=== PATIENT | female | born 1955 | race Caucasian/White ===

== ENCOUNTER 2016-12-18 17:58 | Emergency (ER) | payer OTHER, MEDICAID ==
[~2016-12-18] VITALS: Ht 157.5 cm; Wt 71.7 kg
[2016-12-18 19:02] LABS: Basophils # (auto) 0.1 uL; Basophils % (auto) 1.1 % (0.0-2.0); Eosinophils # (auto) 0.1 uL; Eosinophils % (auto) 0.6 % (0.0-7.0); Hematocrit 37.5 % (36.0-46.0); Hemoglobin 12.4 g/dL (12.2-16.2); Mean Corpuscular Hgb Conc. 33.1 g/dL (32.0-36.0); Mean Corpuscular Volume 87.7 fL (80.0-100.0); Monocytes # (auto) 0.8 uL; Monocytes % (auto) 6.2 % (0.0-12.0); Neutrophils # (auto) 11.7 uL; Neutrophils % (auto) 85.1 % (37.0-80.0); Platelet Count (auto) 395 10^3/uL (140-450); Red Cell Distribution Width 13.4 % (11.6-16.0); White Blood Cell 13.7 10^3/uL (4.4-10.8)
[2016-12-18 19:30] LABS: Albumin 2.8 g/dL (3.4-5.0); Anion Gap 10 (5-15); Aspartate Aminotransferase 27 U/L (15-37); BUN/Creatinine Ratio 14.5; Blood Urea Nitrogen 8 mg/dL (7-18); Calcium 8.8 mg/dL (8.5-10.1); Carbon Dioxide 24 mmol/L (21-32); Chloride 102 mmol/L (98-107); GFR African American 145 mL/min; GFR Non-African American 119 mL/min; Glucose 179 mg/dL (74-106); Sodium 136 mmol/L (136-145)
[2016-12-18 19:35] LABS: Alkaline Phosphatase 174 U/L (45-117); Bilirubin, Total 0.6 mg/dL (0.2-1.0); Total Protein 6.8 g/dL (6.4-8.2)
[2016-12-18] MEDS ORDERED: SODIUM CHLORIDE 0.9% 1,000 ML IV ONE ×2 (19:49→22:00)
[2016-12-18] MEDS ORDERED: LEVOFLOXACIN 500MG 100 ML IV ONE (20:00)
[2016-12-18] MEDS ORDERED: NALBUPHINE HCL 10 MG/1ml INJECTION IV ONE (22:00)
[2016-12-18] MEDS ORDERED: ALBUTEROL SULF 2.5 MG/0.5ML(0.5%) NEB SOLN NEB ONE (22:00)
[2016-12-18] MEDS ORDERED: IPRATROPIUM BROM 0.5 MG/2.5ML INH SOL NEB ONE (22:00)
[2016-12-18] MEDS ORDERED: ONDANSETRON HCL 4 MG/2 ML VIAL IV ONE (22:00)
[2016-12-18 22:04] LABS: Urine Bilirubin Negative (Negative); Urine Blood Negative /uL (Negative); Urine Color Yellow (Yellow); Urine Glucose Normal (Normal); Urine Nitrite Negative (Negative); Urine RBC <1 /hpf (0 - 4); Urine Squamous Epithelial Cell FEW /hpf (<5); Urine Urobilinogen Normal (Negative); Urine pH 6.5 (5.0-8.0)
[2016-12-18 22:14] LABS: Urine Ketone 1+ (Negative)
[2016-12-18 22:25] VITALS: BP 128/63
== END 2016-12-18 23:36 | disposition left against medical advice (07) ==
LOC: EDBD 17:58 → ER 18:32
DX: J18.9 Pneumonia, unspecified organism (principal); E11.9 Type 2 diabetes mellitus without complications; I10 Essential (primary) hypertension
CPT/HCPCS: 36415; 71010; 80053; 81001; 83605; 84484; 85025; 87040; 94640; 94761; 96361; 96365; 96366; 96375; 99285; J1956; J2300; J2405; J7030

== ENCOUNTER 2018-09-12 04:44 | Emergency (ER) | payer OTHER, MEDICAID ==
[~2018-09-12] VITALS: Ht 165.1 cm; Wt 68.0 kg
[~2018-09-12 04:44] MED LIST: GABA300C10 PO; METO-159 PO; POM PO
[2018-09-12] MEDS ORDERED: KETOROLAC TROMETH 30 MG/ML 1ML VIAL IV ONE (06:00)
[2018-09-12] MEDS ORDERED: ONDANSETRON HCL 4 MG/2 ML VIAL IV ONE (06:00)
== END 2018-09-12 06:23 | disposition left against medical advice (07) ==
LOC: EDBD 04:44 → ER 04:50
DX: R11.2 Nausea with vomiting, unspecified (principal); Z53.21 Procedure and treatment not carried out due to patient leaving prior to being seen by health care provider
CPT/HCPCS: 93005; 96374; 96375; 99281; J1885; J2405

== ENCOUNTER 2018-11-09 17:43 | Inpatient (IN) | payer OTHER, MEDICAID ==
[~2018-11-09] VITALS: Ht 165.1 cm; Wt 75.7 kg
[2018-11-09] MEDS ORDERED: cefTRIAXone 1GM/50ML D5W 50 ML IV ONE (18:00)
[2018-11-09] MEDS ORDERED: AZITHROMYCIN 500MG/ 250ML 250 ML IV ONE (19:00)
[2018-11-09 19:41] LABS: Eosinophils # (auto) 0.2 uL; Hematocrit 31.3 % (36.0-46.0); Monocytes # (auto) 0.3 uL; Neutrophils # (auto) 9.9 uL; Nucleated Red Blood Cells % 0.1 %; Red Blood Cells 3.68 10^6/uL (4.0-5.20); White Blood Cell 11.1 10^3/uL (4.4-10.8)
[2018-11-09 19:43] LABS: Basophils # (auto) 0 uL; Basophils % (auto) 0.3 % (0.0-2.0); Eosinophils % (auto) 1.8 % (0.0-7.0); Hemoglobin 10.2 g/dL (12.2-16.2); Lymphocytes # (auto) 0.6 uL; Lymphocytes % (auto) 5.6 % (10.0-50.0); Mean Corpuscular Hemoglobin 27.7 pg (28.0-32.0); Mean Corpuscular Hgb Conc. 32.6 g/dL (32.0-36.0); Monocytes % (auto) 2.5 % (0.0-12.0); Neutrophils % (auto) 89.8 % (37.0-80.0); Platelet Count (auto) 543 10^3/uL (140-450); Red Cell Distribution Width 15.4 % (11.8-14.3)
[2018-11-09 19:46] LABS: INR 1.05 (0.9-1.15); Partial Thromboplastin Time 36.1 sec (23.78-33.04); Prothrombin Time 11.2 sec (9.27-12.13)
[2018-11-09 19:55] LABS: Albumin 2.4 g/dL (3.4-5.0); BUN/Creatinine Ratio 14.1; Calcium 8.7 mg/dL (8.5-10.1); Magnesium 2.2 mg/dL (1.6-2.6); Potassium 3.6 mmol/L (3.5-5.1)
[2018-11-09 20:00] LABS: Bilirubin, Total 0.2 mg/dL (0.2-1.0); Total Protein 6.3 g/dL (6.4-8.2)
[2018-11-09] MEDS ORDERED: HYDROcodone-ACET 10/325MG TAB PO ONE (21:15)
[2018-11-09] MEDS ORDERED: GABAPENTIN 300 MG CAP PO ONE (23:45)
[2018-11-10] VITALS (8 sets, daily range): BP systolic 102–128; BP diastolic 51–63
[2018-11-10] MEDS ORDERED: ONDANSETRON HCL 4 MG/2 ML VIAL IV ONE (00:45)
[2018-11-10] MEDS ORDERED: FUROSEMIDE 20 MG/2 ML VIAL IV ONE (00:45)
[2018-11-10] MEDS ORDERED: MORPHINE SULFATE 4 MG/ML SYR/VIAL IV ONE (00:45)
[2018-11-10] MEDS ORDERED: ONDANSETRON HCL 4 MG/2 ML VIAL IV PRN (01:45)
[2018-11-10] MEDS ORDERED: ACETAMINOPHEN 500 MG TAB PO PRN (01:45)
[2018-11-10] MEDS ORDERED: NITROGLYCERIN 0.4 MG SL TAB SL PRN (01:45)
[2018-11-10] MEDS ORDERED: LORazepam 2MG/ML-1ML VIAL IV ONE (01:45)
[2018-11-10] MEDS ORDERED: ALBUTEROL SULF 2.5 MG/0.5ML(0.5%) NEB SOLN NEB PRN (02:00)
[2018-11-10] MEDS ORDERED: DEXTROSE (50%) 50ML SYRG IV PRN (03:15)
[2018-11-10] MEDS ORDERED: cloNIDine HCL 0.1 MG TAB PO PRN (03:15)
--- NOTE | 2018-11-10 05:15 | NUR ---
HOSPITALIST RETURNED CALL NEW ORDER FOR ABG RECEIVED
--- NOTE | 2018-11-10 05:39 | NUR ---
TELE ADMIT FROM ER JAYYROJELIO ADMITTED TO TELE. NO SBAR RECEIVED. PATIENT ORIENTED TO LAVELL CARRILLO RN, ROOM 223 A AND POLICIES REGARDING PATIENT CARE AND VISITING HOURS. WEIGHED AT BEDSCALE, VITALS SIGNS AND ASSESSMENT DONE. PATIENTS O2 SATURATION 85 % ON 10L. PATIENT COMPLAINING OF SOB. RESPIRATORY PAGED FOR BREATHING TREATMENT. WILL CONTINUE TO MONITOR. Addendum: 11/10/18 at 0543 by LAVELL PATHAK RN RN WRONG TIME. RIGHT TIME 0400 Addendum: 11/10/18 at 0549 by LAVELL PATHAK RN RN PATIENT IS ALSO VERY FATIGUED AND LETHARGIC WITH SOB AT REST. RESPIRATIONS 26 BPM, HR 89, BP 106/56
--- NOTE | 2018-11-10 05:43 | NUR ---
MED REC PATIENT IS UNABLE TO STATE MEDICATIONS AT THIS TIME. SHE IS VERY SLEEPY AND FATIGUED WITH SOB WHILE TALKING.
[2018-11-10] MEDS ORDERED: FUROSEMIDE 20 MG/2 ML VIAL IV SCH ×2 (06:00→18:00)
[2018-11-10] MEDS ORDERED: INFLUENZA QUAD 2018-2019 0.5 ML SYRG IM ONE (06:00)
[2018-11-10] MEDS ORDERED: PNEUMOCOCCAL VACC POLYS 25 MCG/0.5 ML VIAL IM ONE (06:00)
[2018-11-10] MEDS: GABAPENTIN 300 MG CAP PO SCH ×3 (06:27→22:39)
[2018-11-10] MEDS: IPRATROPIUM BROM 0.5 MG/2.5ML INH SOL NEB SCH ×3 (06:35→20:04)
[2018-11-10] MEDS: ALBUTEROL SULF 2.5 MG/0.5ML(0.5%) NEB SOLN NEB SCH ×3 (06:35→20:04)
--- NOTE | 2018-11-10 06:43 | NUR ---
INCREASED 02 TO 15LPM NRB, DUE TO LOW SAT OF 88% ON SIMPLE MASK. SPO2 INCREASED TO 94%. Addendum: 11/10/18 at 0649 by Ita Pittman RT Amended: Links added.
[2018-11-10] MEDS: InsuLIN REG 1unit/0.01ml Soln (100units/ml) SC SCH ×4 (07:00→22:00)
--- NOTE | 2018-11-10 07:26 | NUR ---
CLOSING SHIFT NOTE TRANSFERRED CARE OF PATIENT TO DAY SHIFT RN SHAYLEE. PATIENT IS ASLEEP IN BED. HOB IS ELEVATED AND O2 ON AT 12L. BED IS IN LOWEST POSITION, LOCKED, NONSKID SOCKS ON, AND CALL LIGHT IS IN REACH.
[2018-11-10] MEDS: ACCU-CHEK COMFORT CURVE STRIP VI SCH ×4 (07:28→22:00)
[2018-11-10 08:48] LABS: Hemoglobin 10.1 g/dL (12.2-16.2); Platelet Count (auto) 531 10^3/uL (140-450); Red Blood Cells 3.62 10^6/uL (4.0-5.20)
[2018-11-10 08:50] LABS: Hematocrit 30.5 % (36.0-46.0); Mean Corpuscular Hgb Conc. 33.2 g/dL (32.0-36.0); Mean Corpuscular Volume 84.3 fL (80.0-100.0); Red Cell Distribution Width 15.4 % (11.8-14.3); White Blood Cell 10.9 10^3/uL (4.4-10.8)
[2018-11-10] MEDS: ASPirin-EC 81 mg tab PO SCH (09:02)
[2018-11-10] MEDS: METOPROLOL TARTRATE 50 MG TAB PO SCH ×2 (09:02→22:34)
[2018-11-10 09:04] LABS: BUN/Creatinine Ratio 14.9; Calcium 8.9 mg/dL (8.5-10.1); Potassium 3.6 mmol/L (3.5-5.1)
[2018-11-10 09:05] LABS: Band Neutrophils % (manual) 0; Basophils % (manual) 0 (0.0-2.0); Blast Cells 0; Eosinophils % (manual) 0 (0-7); Metamyelocytes % 0; Myelocytes % 0; Promyelocytes % 0; Reactive Lymphocytes 0
[2018-11-10] MEDS: HYDROcodone-ACET 5/325MG TAB PO PRN ×3 (09:40→20:01)
[2018-11-10] MEDS ORDERED: FAMOTIDINE 20 MG TAB PO SCH (10:00)
[2018-11-10 11:03] LABS: Urine Bacteria NONE SEEN /hpf (None Seen); Urine Blood Negative /uL (Negative); Urine Hyaline Cast FEW /lpf (0 - 2); Urine Specific Gravity 1.009 (1.001-1.035); Urine WBC 2 /hpf (0 - 5)
--- NOTE | 2018-11-10 11:42 | NUR ---
Dr. Mulligan at bedside discussed with patient, received new orders noted and carried out.
[2018-11-10] MEDS ORDERED: FUROSEMIDE 40 MG/4 ML VIAL IV ONE (11:45)
[2018-11-10 11:52] LABS: Lymphocytes % (manual) 6 (10.0-50.0); Monocytes % (manual) 4 (0-12)
--- NOTE | 2018-11-10 12:15 | NUR ---
T 100, cooling measure taken.
--- NOTE | 2018-11-10 13:00 | NUR ---
T 98.5. Will continue to monitor.
[2018-11-10] MEDS ORDERED: IOHEXOL 350 MG/ML 100ML IJ ONE (13:10)
--- NOTE | 2018-11-10 13:30 | NUR ---
IV insertion IV access obtained, via clean sterile technique by inserting 20 gauge catheter at after attempt(s). IV secured properly. No trauma to site. Patient tolerated well.
[2018-11-10] MEDS: MORPHINE SULFATE 4 MG/ML SYR/VIAL IV PRN ×2 (14:19→23:08)
--- NOTE | 2018-11-10 15:16 | NUR ---
Dr. Mulligan made aware of RR 30-35 BP 102/57 HR 92 o2 95% of oxygen mask with bag at 12 LMP, new order noted and carried out.
[2018-11-10] MEDS: LORazepam 0.5 MG TAB PO PRN (17:11)
--- NOTE | 2018-11-10 17:21 | NUR ---
T 100.2, cooling measure taken.
--- NOTE | 2018-11-10 18:13 | NUR ---
T 99.9
--- NOTE | 2018-11-10 19:35 | NUR ---
RT REPORTS PATIENT ON NC AT 9L WITH PATIENT O2 SATURATION 83% PATIENT IS ALERT AND ORIENTED X4, BP 109/57, P 118, R28, T99.9. LUNGS ARE DIMINISHED WITH CRACKLES. RESPIRATORY MEGAN CURRENTLY PLACED HER ON 12L FACE MASK NON-BREATHER WITH AN O2 SATURATION OF 96%. COPD IS NOTED. ABG YESTERDAY SHOWS NON CO2 RETAINER. PH7.333, PACO2 39.5, BICARB 20.5, AND PAO2 63.0. WILL ADJUST OXYGEN NEEDED ACCORDING PATIENT NORMAL BASELINE, AND CHANGE TO OXYMIZER NEEDED.
--- NOTE | 2018-11-10 19:43 | NUR ---
Respiratory note: ENTERED ROOM TO ADMINISTER BREATHING TX. PT FOUND ON 9L NASAL CANNULA, SATS 81-85%. RECEIVED IN REPORT THAT PT WAS ON NRB @12lpm, NRB CURRENTLY OFF AND AT BEDSIDE. PT STATES THEY TOOK HER OFF MASK TO EAT DINNER. TX GIVEN, TOLERATED WELL, SATS UP TO 93%. PT PLACED BACK ON NRB POST TX. WILL PLACE PT ON CONT. PULSE OX MONITOR. SPOKE WITH RN AND CHARGE NURSE REGARDING PTS O2.
--- NOTE | 2018-11-10 19:56 | NUR ---
RT CHANGED PATIENT TO OXYMIZER AT 12L WITH A O2 SATURATION OF 93%. WILL CONTINUE TO MONITOR
--- NOTE | 2018-11-10 19:58 | NUR ---
Respiratory note: PT PLACED ON CONT. PULSE OX MONITOR. SWITCHED TO 12L OXYMIZER, SATS MAINTAINING AT 90-95%. HR 96, RR 26. PT COMPLAINING OF PAIN. RN REMAINS AT BEDSIDE.
--- NOTE | 2018-11-10 22:30 | NUR ---
Respiratory note: WALKING PAST PTS ROOM, PULSE OX ALARMING. ENTERED ROOM, PTS SATS 59%. PT ON OXYMIZER, OXYMIZER IN PTS MOUTH. WOKE UP PT, SATS NOT COMING UP, SWITCHED TO NRB AT 12LPM. SATS NOW 93-98%. SPOKE WITH CHARGE NURSE, STATES THEY WILL MOVE PT CLOSER TO NURSES STATION.
[2018-11-10] MEDS: AZITHROMYCIN 500MG/ 250ML 250 ML IV SCH (22:33)
[2018-11-10] MEDS: FAMOTIDINE 20 MG TAB PO SCH (22:35)
[2018-11-10] MEDS: ATORVASTATIN 20 MG TAB PO SCH (22:35)
[2018-11-11] MEDS: ALBUTEROL SULF 2.5 MG/0.5ML(0.5%) NEB SOLN NEB SCH ×4 (00:24→19:53)
[2018-11-11] MEDS: IPRATROPIUM BROM 0.5 MG/2.5ML INH SOL NEB SCH ×4 (00:24→19:53)
[2018-11-11] MEDS: cefTRIAXone 1GM/50ML D5W 50 ML IV SCH ×2 (01:11→20:36)
[2018-11-11] MEDS: HYDROcodone-ACET 5/325MG TAB PO PRN ×4 (02:33→17:59)
[2018-11-11 04:30] VITALS: BP 126/60
--- NOTE | 2018-11-11 04:53 | NUR ---
OPENING SHIFT NOTE ASSUMED CARE OF PATIENT FROM DAY SHIFT SABRINA JUNE. PATIENT IS RESTING IN BED. RT IS AT BEDSIDE ADJUSTING O2 ADMINISTRATION. RESPIRATIONS ARE SHALLOW WITH [place] AT 26BPM. PATIENT IS ALERT AND ORIENTED X4 WITH BP IN NORMAL LIMITS. INSTRUCTED PATIENT ON POC, PATIENT VERBALIZED UNDERSTANDING. BED IS IN LOWEST POSITION WITH SIDE RAILS RAISED X2, BED WHEELS LOCKED, AND CALL LIGHT WITHIN REACH. WILL CONTINUE TO MONITOR.
[2018-11-11] MEDS: MORPHINE SULFATE 4 MG/ML SYR/VIAL IV PRN ×4 (05:18→21:19)
[2018-11-11] MEDS: GABAPENTIN 300 MG CAP PO SCH ×3 (05:24→21:18)
[2018-11-11] MEDS: InsuLIN REG 1unit/0.01ml Soln (100units/ml) SC SCH ×4 (06:15→21:20)
[2018-11-11 06:57] LABS: Mean Corpuscular Volume 84.8 fL (80.0-100.0); Red Cell Distribution Width 15.1 % (11.8-14.3)
[2018-11-11 06:59] LABS: Hematocrit 29.6 % (36.0-46.0); Hemoglobin 9.7 g/dL (12.2-16.2); Mean Corpuscular Hemoglobin 27.7 pg (28.0-32.0); Mean Corpuscular Hgb Conc. 32.7 g/dL (32.0-36.0); Platelet Count (auto) 530 10^3/uL (140-450); Red Blood Cells 3.49 10^6/uL (4.0-5.20); White Blood Cell 9.2 10^3/uL (4.4-10.8)
[2018-11-11] MEDS: ACCU-CHEK COMFORT CURVE STRIP VI SCH ×4 (07:00→21:20)
--- NOTE | 2018-11-11 07:01 | NUR ---
[facility] HOSPITALIST Addendum: 11/11/18 at 0809 by LAVELL PATHAK RN RN WRONG PATIENT
[2018-11-11 07:02] LABS: Basophils # (auto) 0 uL; Basophils % (auto) 0.3 % (0.0-2.0); Eosinophils # (auto) 0.1 uL; Lymphocytes # (auto) 0.5 uL; Monocytes # (auto) 0.2 uL; Monocytes % (auto) 2.5 % (0.0-12.0); Neutrophils # (auto) 8.2 uL; Neutrophils % (auto) 90.2 % (37.0-80.0); Nucleated Red Blood Cells % 0.1 %
--- NOTE | 2018-11-11 07:03 | NUR ---
HOSPITALIST RETURNED CALL NEW ORDERS RECEIVED TO PLACE MIDLINE CONSULT Addendum: 11/11/18 at 0808 by LAVELL PATHAK RN RN WRONG PATIENT.
[2018-11-11 07:15] LABS: BUN/Creatinine Ratio 15.5; Calcium 8.8 mg/dL (8.5-10.1); Potassium 3.4 mmol/L (3.5-5.1)
--- NOTE | 2018-11-11 07:55 | NUR ---
Paged respiratory therapist, patient saturation 100% on 15 liters non rebreather Spoke with Rachael. Informed that patient saturation is 100% on 15 liters non-rebreather. Per respiratory therapist, patient needs 15 liters oxygen based on ABG. Do not turn it down, respiratory will manage. Will continue to monitor.
--- NOTE | 2018-11-11 08:10 | NUR ---
CLOSING SHIFT NOTE TRANSFERRED CARE OF PATIENT TO DAY SHIFT RN EDD. PATIENT IS AWAKE RESTING IN BED. SHE IS ALERT AND ORIENTED X4 AT THIS TIME. NO S/S OF DISTRESS OR PAIN. PATIENT ON 15L FACE MASK NONREBREATHER BED IS IN LOWEST POSITION, LOCKED, NONSKID SOCKS ON, AND CALL LIGHT IS IN REACH.
[2018-11-11 09:00] VITALS: BP 124/58
[2018-11-11] MEDS: ASPirin-EC 81 mg tab PO SCH (10:00)
--- NOTE | 2018-11-11 10:01 | NUR ---
Midline Placement: Patient educated on need for midline placement. All risks and benefits explained and all questions and concerns addresses prior to procedure. 18g/10cm midline inserted via RIGHT BRACHIAL vein using Ultrasound. Sterile technique utilized. Blood return obtained from SINGLE lumen and flushed easily with NS using proper technique. Midline secured with saline lock; biodisc and occlusive dressing applied. Primary RN notified. Midline lot #[id number].
[2018-11-11] MEDS: METOPROLOL TARTRATE 50 MG TAB PO SCH ×2 (10:39→21:18)
[2018-11-11] MEDS: FAMOTIDINE 20 MG TAB PO SCH ×2 (10:40→21:18)
--- NOTE | 2018-11-11 11:00 | NUR ---
PT ON 10 LITERS OXYMIZER, SPO2 94%.
[2018-11-11 13:00] VITALS: BP 116/57
[2018-11-11 17:00] VITALS: BP 128/61
--- NOTE | 2018-11-11 19:21 | NUR ---
CLOSING NOTE ENDORSED CARE TO TEST ENGINEER NUCLEAR EQUIPMENT RN. PATIENT IN BED IN LOW LOCK POSITION. CALL LIGHT IN REACH. NO S/S OF DISTRESS.
[2018-11-11] MEDS: ATORVASTATIN 20 MG TAB PO SCH (21:19)
[2018-11-11] MEDS: AZITHROMYCIN 500MG/ 250ML 250 ML IV SCH (21:20)
--- NOTE | 2018-11-11 21:47 | NUR ---
OPENING SHIFT NOTE ASSUMED CARE OF PATIENT FROM DAY SHIFT RN EDD. PATIENT IS AWAKE AND ORIENTED X4 RESTING IN BED. SHE IS ON 12L OXYMIZER AND O2 SATURATION IS 98%. NO S/S OF DISTRESS OR PAIN AT THIS TIME. BED IS IN LOWEST POSITION, LOCKED, SIDE RAILS UP X2, AND CALL LIGHT IN REACH. BED ALARM IS ON. INSTRUCTED ON POC AND TO CALL PRN. WILL CONTINUE TO MONITOR.
--- NOTE | 2018-11-11 22:15 | NUR ---
CALL TO DR MCDONALD OFFICE SPOKE WITH THE METAL FABRICATOR WELDER DOCTOR THROUGH DR. MCDONALD EXCHANGE. INFORMED THAT PATIENT IS SCREAMING IN PAIN AFTER ALREADY HAD MORPHINE IVP 1 HR AGO. ALSO NOTIFIED THAT PATIENT IS TRYING TO GET OUT OF BED DUE TO THE PAIN. NEW ORDERS RECEIVED TO GIVE AN ADDITIONAL 2MG DOSE OF MORPHINE IVP ONCE. IF PATIENT TOLERATES WELL, CAN INCREASE MORPHINE TO 4MG Q4 PRN IVP.
[2018-11-11] MEDS ORDERED: MORPHINE SULFATE 4 MG/ML SYR/VIAL IM ONE (22:30)
[2018-11-11] MEDS ORDERED: MORPHINE SULFATE 4 MG/ML SYR/VIAL IV ONE (22:45)
[2018-11-12] MEDS: IPRATROPIUM BROM 0.5 MG/2.5ML INH SOL NEB SCH ×4 (01:01→18:50)
[2018-11-12] MEDS: ALBUTEROL SULF 2.5 MG/0.5ML(0.5%) NEB SOLN NEB SCH ×4 (01:01→18:50)
--- NOTE | 2018-11-12 01:01 | NUR ---
Respiratory note: PT REFUSED 0000 MED NEB TX. PT HR 82 RR 18 SPO2 96% 12LPM OXYMIZER. PT REMAINS STABLE WITH NO RESPIRATORY DISTRESS NOTED WILL CONTINUE TO MONITOR PT ORDERED.
[2018-11-12] MEDS: MORPHINE SULFATE 4 MG/ML SYR/VIAL IV PRN ×3 (02:26→11:07)
[2018-11-12] MEDS: LORazepam 0.5 MG TAB PO PRN ×3 (02:27→17:41)
[2018-11-12 04:30] VITALS: BP 123/57
[2018-11-12] MEDS: InsuLIN REG 1unit/0.01ml Soln (100units/ml) SC SCH ×4 (06:13→22:43)
[2018-11-12] MEDS: GABAPENTIN 300 MG CAP PO SCH ×3 (06:13→22:42)
[2018-11-12] MEDS: ACCU-CHEK COMFORT CURVE STRIP VI SCH ×4 (06:14→22:42)
[2018-11-12 06:31] LABS: Basophils # (auto) 0 uL; Basophils % (auto) 0.7 % (0.0-2.0); Eosinophils # (auto) 0.3 uL; Eosinophils % (auto) 4.1 % (0.0-7.0); Hematocrit 27.7 % (36.0-46.0); Lymphocytes # (auto) 0.7 uL; Lymphocytes % (auto) 9.8 % (10.0-50.0); Mean Corpuscular Hemoglobin 27.2 pg (28.0-32.0); Mean Corpuscular Hgb Conc. 32.6 g/dL (32.0-36.0); Mean Corpuscular Volume 83.4 fL (80.0-100.0); Monocytes # (auto) 0.3 uL; Monocytes % (auto) 3.7 % (0.0-12.0); Neutrophils # (auto) 5.9 uL; Neutrophils % (auto) 81.7 % (37.0-80.0); Platelet Count (auto) 505 10^3/uL (140-450); Red Blood Cells 3.32 10^6/uL (4.0-5.20); Red Cell Distribution Width 14.9 % (11.8-14.3); White Blood Cell 7.3 10^3/uL (4.4-10.8)
[2018-11-12 06:39] LABS: Calcium 8.7 mg/dL (8.5-10.1)
--- NOTE | 2018-11-12 07:18 | NUR ---
CLOSING SHIFT NOTE TRANSFERRED CARE OF PATIENT TO DAY SHIFT RN EDD. PATIENT IS AWAKE RESTING IN BED. SHE IS ALERT AND ORIENTED X4 AT THIS TIME. NO S/S OF DISTRESS OR PAIN. BED IS IN LOWEST POSITION, LOCKED, NONSKID SOCKS ON, AND CALL LIGHT IS IN REACH.
[2018-11-12 09:00] VITALS: BP 143/63
[2018-11-12] MEDS: ASPirin-EC 81 mg tab PO SCH (09:29)
[2018-11-12] MEDS: METOPROLOL TARTRATE 50 MG TAB PO SCH ×2 (09:30→22:41)
[2018-11-12] MEDS: FAMOTIDINE 20 MG TAB PO SCH ×2 (09:30→22:42)
[2018-11-12 13:00] VITALS: BP 136/70
[2018-11-12] MEDS ORDERED: FUROSEMIDE 40 MG/4 ML VIAL IV ONE (14:00)
--- NOTE | 2018-11-12 14:17 | NUR ---
PATIENT UPSET PATIENT STATING SHE CAN'T TAKE THE PAIN ANYMORE, OFFERED PATIENT PERCOCET. PATIENT STATES IT MAKES HER NAUSEOUS. OFFERED PATIENT NAUSEA MEDICATION. PATIENT REFUSED AND STATED NO. PATIENT REQUESTING MORPHINE. MD DISCONTINUED MORPHINE. OFFERED PATIENT HEAT OR ICE PACK, PATIENT REFUSED. WILL CONTINUE TO MONITOR.
--- NOTE | 2018-11-12 14:22 | NUR ---
PATIENT REMOVED OXYMIZER- REFUSING AT THIS TIME. PATIENT REFUSING TO PUT IT BACK ON. INFORMED PATIENT IT HELPS HER BREATH. PATIENT CONTINUING TO REFUSE. PATIENT ON CONTINUOUS PULSE OXYGEN SATURATION, AT 65% WITHOUT OXYGEN. CHARGE NURSE AWARE. WILL CONTINUE TO MONITOR.
--- NOTE | 2018-11-12 14:52 | NUR ---
PATIENT AGREED TO KEEP OXYGEN ON. SATURATION RETURNED TO 95%. WILL CONTINUE TO MONITOR.
[2018-11-12] MEDS: OXYCODONE W/ ACETAMINOPHEN 5/325MG TABLET PO PRN ×3 (14:55→22:43)
[2018-11-12] MEDS: methylPREDNISolone SOD SUCC 125 MG/2 ML VL IV SCH ×2 (15:30→22:40)
[2018-11-12 17:15] VITALS: BP 149/81
--- NOTE | 2018-11-12 19:30 | NUR ---
Opening Shift Note Assumed care of patient, awake and alert. No S/S of distress/SOB. Instructed on POC and to call for assist PRN. Bed in lowest locked position, call light within reach, side rails up x2, fall precaution in place. Will continue to monitor for changes Q1hr and PRN.
--- NOTE | 2018-11-12 20:07 | NUR ---
CLOSING NOTE ENDORSED CARE TO SENIOR MERCHANDISER RN. BED IN LOW LOCK POSITION, OXYGEN ON. NO S/S OF DISTRESS.
[2018-11-12 20:38] VITALS: BP 149/81
[2018-11-12] MEDS: cefTRIAXone 1GM/50ML D5W 50 ML IV SCH (21:08)
[2018-11-12 22:00] VITALS: BP 120/68
--- NOTE | 2018-11-12 22:06 | NUR ---
Called Dr. Mulligan's office In regards to patient requesting sleeping pill. Spoke with litigation assistant doctor, updated on patient's status, new orders received, continue care.
[2018-11-12] MEDS ORDERED: ZOLPIDEM TARTRATE 5 MG TAB PO ONE (22:15)
[2018-11-12] MEDS: ATORVASTATIN 20 MG TAB PO SCH (22:40)
[2018-11-12] MEDS: AZITHROMYCIN 500MG/ 250ML 250 ML IV SCH (22:40)
[2018-11-13] MEDS: IPRATROPIUM BROM 0.5 MG/2.5ML INH SOL NEB SCH ×4 (00:24→19:27)
[2018-11-13] MEDS: ALBUTEROL SULF 2.5 MG/0.5ML(0.5%) NEB SOLN NEB SCH ×4 (00:24→19:27)
[2018-11-13 05:00] VITALS: BP 151/70
[2018-11-13] MEDS: OXYCODONE W/ ACETAMINOPHEN 5/325MG TABLET PO PRN ×5 (05:41→23:58)
[2018-11-13 05:59] LABS: Hemoglobin 11.1 g/dL (12.2-16.2); White Blood Cell 7.9 10^3/uL (4.4-10.8)
[2018-11-13] MEDS ORDERED: FUROSEMIDE 20 MG/2 ML VIAL IV ONE (06:00)
[2018-11-13 06:01] LABS: Hematocrit 33.3 % (36.0-46.0); Mean Corpuscular Hemoglobin 27.8 pg (28.0-32.0); Mean Corpuscular Hgb Conc. 33.3 g/dL (32.0-36.0); Mean Corpuscular Volume 83.7 fL (80.0-100.0); Platelet Count (auto) 581 10^3/uL (140-450); Red Blood Cells 3.98 10^6/uL (4.0-5.20); Red Cell Distribution Width 15.1 % (11.8-14.3)
[2018-11-13 06:13] LABS: Calcium 9.4 mg/dL (8.5-10.1)
[2018-11-13 06:15] LABS: BUN/Creatinine Ratio 28.6
[2018-11-13] MEDS: GABAPENTIN 300 MG CAP PO SCH ×3 (06:32→21:55)
[2018-11-13] MEDS: InsuLIN REG 1unit/0.01ml Soln (100units/ml) SC SCH ×4 (06:32→21:55)
[2018-11-13] MEDS: ACCU-CHEK COMFORT CURVE STRIP VI SCH ×4 (06:32→21:54)
[2018-11-13 07:56] LABS: Basophils % (manual) 0 (0.0-2.0); Blast Cells 0; Eosinophils % (manual) 0 (0-7); Metamyelocytes % 0; Myelocytes % 0; Promyelocytes % 0; Reactive Lymphocytes 0
[2018-11-13] MEDS: HYDROcodone-ACET 5/325MG TAB PO PRN ×4 (08:27→21:24)
[2018-11-13 09:00] VITALS: BP 139/72
[2018-11-13] MEDS: ASPirin-EC 81 mg tab PO SCH (09:48)
[2018-11-13] MEDS: METOPROLOL TARTRATE 50 MG TAB PO SCH ×2 (09:48→21:55)
[2018-11-13] MEDS: methylPREDNISolone SOD SUCC 125 MG/2 ML VL IV SCH ×2 (09:48→21:54)
[2018-11-13] MEDS: FAMOTIDINE 20 MG TAB PO SCH ×2 (09:48→21:55)
[2018-11-13 11:09] LABS: Band Neutrophils % (manual) 2; Lymphocytes % (manual) 12 (10.0-50.0); Monocytes % (manual) 3 (0-12)
[2018-11-13] MEDS: LORazepam 0.5 MG TAB PO PRN (11:15)
[2018-11-13 13:00] VITALS: BP 135/73
--- NOTE | 2018-11-13 15:03 | NUR ---
Nutrition Assessment Notes please see attached link for complete assessment Est. Needs based on BW (72 kg): 0714-1343 kcal (23-25 kcal/kgBW), 72-79 gms pro (1.0-1.1 gms/kgBW). Will continue to monitor pertinent labs and reassess nutrient need prn Addendum: 11/13/18 at [address] Amended: Links added.
[2018-11-13 17:00] VITALS: BP 143/68
[2018-11-13] MEDS ORDERED: IOHEXOL 300 MG/ML 100ML BOTTLE IJ ONE (17:04)
--- NOTE | 2018-11-13 19:40 | NUR ---
Opening Shift Note Assumed care of patient, awake and alert. No S/S of distress/SOB. Instructed on POC and to call for assist PRN. Bed in lowest locked position, call light within reach, side rails up x2. Will continue to monitor for changes Q1hr and PRN.
[2018-11-13] MEDS: cefTRIAXone 1GM/50ML D5W 50 ML IV SCH (20:18)
[2018-11-13] MEDS: AZITHROMYCIN 500MG/ 250ML 250 ML IV SCH (21:24)
--- NOTE | 2018-11-13 21:33 | NUR ---
Called Dr. Mulligan's office regarding patient wanting sleeping pill. Spoke with electric motors salesperson doctor, new orders received. Continue care.
[2018-11-13] MEDS ORDERED: ZOLPIDEM TARTRATE 5 MG TAB PO PRN (21:45)
[2018-11-13] MEDS: ATORVASTATIN 20 MG TAB PO SCH (21:54)
[2018-11-13 22:00] VITALS: BP 141/89
--- NOTE | 2018-11-14 00:40 | NUR ---
PT REFUSED MED NEB TX AT THIS TIME. SPO2 100% ON 4L OXYMIZER, HR 62. PT DENIES ANY RESPIRATORY DISTRESS. WILL CONTINUE WITH NEXT SCHEDULED TX.
[2018-11-14] MEDS: HYDROcodone-ACET 5/325MG TAB PO PRN (02:20)
[2018-11-14] MEDS: LORazepam 0.5 MG TAB PO PRN (02:58)
[2018-11-14] MEDS: OXYCODONE W/ ACETAMINOPHEN 5/325MG TABLET PO PRN ×3 (04:07→16:29)
[2018-11-14 05:00] VITALS: BP 176/85
--- NOTE | 2018-11-14 05:10 | NUR ---
Called Dr. Mulligan's office Spoke with contractor field hauling doctor. Updated on patient status regarding patient wanting more pain medication and hitting limit of acetaminophen within the 24 hours. New orders received. Continue care.
[2018-11-14] MEDS ORDERED: MORPHINE SULF INJ 2 MG/ML SYRINGE 1ML IV PRN (05:30)
[2018-11-14] MEDS: GABAPENTIN 300 MG CAP PO SCH ×2 (06:00→14:06)
[2018-11-14] MEDS: ACCU-CHEK COMFORT CURVE STRIP VI SCH ×2 (06:00→12:27)
[2018-11-14] MEDS: InsuLIN REG 1unit/0.01ml Soln (100units/ml) SC SCH ×2 (06:01→12:28)
[2018-11-14] MEDS: ALBUTEROL SULF 2.5 MG/0.5ML(0.5%) NEB SOLN NEB SCH ×3 (06:54→12:53)
[2018-11-14] MEDS: IPRATROPIUM BROM 0.5 MG/2.5ML INH SOL NEB SCH ×3 (06:54→12:53)
[2018-11-14 07:37] LABS: Basophils # (auto) 0 uL; Eosinophils # (auto) 0 uL; Eosinophils % (auto) 0.1 % (0.0-7.0); Hemoglobin 10.1 g/dL (12.2-16.2); Mean Corpuscular Volume 82.6 fL (80.0-100.0); Monocytes # (auto) 0.7 uL; White Blood Cell 13.9 10^3/uL (4.4-10.8)
[2018-11-14 07:39] LABS: Basophils % (auto) 0.2 % (0.0-2.0); Hematocrit 30.7 % (36.0-46.0); Lymphocytes # (auto) 1.2 uL; Lymphocytes % (auto) 8.4 % (10.0-50.0); Mean Corpuscular Hemoglobin 27.3 pg (28.0-32.0); Monocytes % (auto) 5.1 % (0.0-12.0); Neutrophils % (auto) 86.2 % (37.0-80.0); Nucleated Red Blood Cells % 0.1 %; Platelet Count (auto) 588 10^3/uL (140-450); Red Blood Cells 3.71 10^6/uL (4.0-5.20); Red Cell Distribution Width 15.1 % (11.8-14.3)
[2018-11-14 07:48] LABS: BUN/Creatinine Ratio 32.7; Calcium 9.3 mg/dL (8.5-10.1); Potassium 3.3 mmol/L (3.5-5.1)
--- NOTE | 2018-11-14 08:00 | NUR ---
Opening Shift Note Assumed care of patient, crying due to severe pain. Patient been recently medicated for pain per report. No S/S of distress/SOB, complaints of severe pain mostly bilateral hip and back 06/12. Instructed on POC and to call for assist PRN, will continue to monitor for changes Q1hr and PRN.
--- NOTE | 2018-11-14 08:30 | NUR ---
Patient complaints of severe pain bilateral hip 06/12. Dr. Schmid at bedside, patient is advised. Orders received.
[2018-11-14] MEDS: HYDROmorphone HCL 2 MG/ML VL IV PRN ×3 (08:47→15:11)
--- NOTE | 2018-11-14 08:47 | NUR ---
Dilaudid 1mg IV administered as ordered for severe hip pain. Will continue care.
[2018-11-14] MEDS: ASPirin-EC 81 mg tab PO SCH (09:47)
[2018-11-14] MEDS: methylPREDNISolone SOD SUCC 125 MG/2 ML VL IV SCH (09:47)
[2018-11-14] MEDS: MORPHINE SULF 30 mg ER tab PO SCH ×2 (09:47→14:06)
[2018-11-14] MEDS: FAMOTIDINE 20 MG TAB PO SCH (09:48)
[2018-11-14] MEDS: METOPROLOL TARTRATE 50 MG TAB PO SCH (09:50)
--- NOTE | 2018-11-14 12:10 | NUR ---
Dr. Suazo at bedside, patient is advised. Patient agreed with home hospice. Refused other test. Refused MRI, CT guided needle biopsy. Patient is for hospice evaluation.
[2018-11-14] MEDS ORDERED: POTASSIUM CHL 20 Meq TABLET PO ONE (12:30)
[2018-11-14] MEDS ORDERED: IOHEXOL 300 MG/ML 100ML BOTTLE IJ ONE (12:49)
--- NOTE | 2018-11-14 14:41 | NUR ---
assessment Patient is a 63 year old female who is alert and oriented. Patients cognitive abilities are intact. Prior to admission patient lived home alone and functioned independently. Patient informed me she is able to care for her own ADLs. Per patient she has had no need for DME. Patient informed me her PCP is Dr Francisco. I informed patient she has a right to speak to a social services coordinator regarding all care. I informed patient she has a right to participate in any and all discharge planning. Patient is aware of visiting hours on the hospital floor. I informed patient she has a right to privacy. Patient does not have a POA and advanced directive. I have offered patient information on POA and advanced directives. I informed the patient the advantages and benefits of having an Advanced Directive. Patient verbalized understanding and agreed to discharge plan. Per ss consult hospice evaluation. Patient has agreed to hospice. Patient wants to speak with Dominguez from [facility] who dr Suazo called in. Patient signed all consents with Dominguez and [facility] has been set for 4pm today post discharge. Patient verbalized understanding and agreed to discharge plan home on hospice. Addendum: 11/14/18 at 1446 by Hanane SHAW Amended: Links added.
--- NOTE | 2018-11-14 14:48 | NUR ---
Received call from Dr. Suazo to discharge patient home on hospice.
[2018-11-14 15:04] VITALS: BP 148/88
--- NOTE | 2018-11-14 16:29 | NUR ---
Percocet PO administered prior to discharge. Pain level-5/10.
--- NOTE | 2018-11-14 16:30 | NUR ---
Discharge instructions given as ordered. Encourage to follow up with PMD per hospice-[facility]. All questions and concerns addressed. Patient verbalized understanding. Medication reconciliation form completed and copy given to patient. IV removed with catheter intact, pressure dressing applied. Telemetry unit returned to [facility]. Patient taken to vehicle via wheelchair by [facility] with all personal belongings, accompanied by staff and family member. No distress noted at time of departure. Addendum: 11/14/18 at 1721 by Santiago Rodriguez RN Patient transported via wheelchair by [facility] setup by hospice.
[2018-11-15] MEDS ORDERED: BISACODYL 5 MG EC TAB PO SCH (10:00)
== END 2018-11-14 16:30 | disposition hospice, home (50) | DRG 542 ==
LOC: EDBD 17:43 → ER 17:45 → CENTRAL 11-10 01:45 → TELE-CENTR 11-10 04:43
PROVIDERS: ADMIT Nurse Practitioner Family; ATTEND Internal Medicine
DX: C79.51 Secondary malignant neoplasm of bone (principal); J96.00 Acute respiratory failure, unspecified whether with hypoxia or hypercapnia; I50.31 Acute diastolic (congestive) heart failure; J84.9 Interstitial pulmonary disease, unspecified; E44.0 Moderate protein-calorie malnutrition; C79.89 Secondary malignant neoplasm of other specified sites; J44.0 Chronic obstructive pulmonary disease with (acute) lower respiratory infection; I11.0 Hypertensive heart disease with heart failure; D50.8 Other iron deficiency anemias; E11.8 Type 2 diabetes mellitus with unspecified complications; G35 Multiple sclerosis; F17.200 Nicotine dependence, unspecified, uncomplicated; Z82.49 Family history of ischemic heart disease and other diseases of the circulatory system; Z82.5 Family history of asthma and other chronic lower respiratory diseases; Z83.3 Family history of diabetes mellitus; Z90.49 Acquired absence of other specified parts of digestive tract; Z90.710 Acquired absence of both cervix and uterus; Z79.899 Other long term (current) drug therapy; Z68.27 Body mass index [BMI] 27.0-27.9, adult
CPT/HCPCS: 36415; 36600; 71045; 71260; 71275; 74177; 78306; 80048; 80053; 81001; 82378; 82805; 82962; 83036; 83605; 83615; 83735; 83880; 84155; 84165; 84484; 85007; 85025; 85027; 85610; 85730; 87040; 87086; 93005; 93306; 93971; 94640; 96365; 96367; 96375; 97163; G0378; J0696; J1815; J2405